=== PATIENT | female | born 1970 | race Caucasian/White ===

== ENCOUNTER → 2024-04-22 07:47 | Outpatient (REF) | payer BC, SELFPAY ==
[2024-04-22 09:00] LABS: % Basophils 0.5 % (0-2); % Eosinophils 1.4 % (0-6); % Immature Granulocytes 0.2 % (0-0.5); % Lymphocytes 31.4 % (20.5-51.1); % Monocytes 7.7 % (1.7-9.3); % Neutrophils 58.8 % (42.2-75.2); Absolute Eosinophils 0.1 10^3/uL (0-0.7); Absolute Lymphocytes 1.4 10^3/uL (1.2-3.4); Absolute Monocytes 0.3 10^3/uL (0.1-0.6); Absolute Neutrophils 2.6 10^3/uL (1.4-6.5); Hematocrit 37.5 % (37.0-47.0); Hemoglobin 13.3 g/dL (12.0-16.0); Mean Corp Hgb Conc. 35.5 g/dL (33.0-37.0); Mean Corpuscular Hgb 31.4 pg (27.0-31.0); Mean Corpuscular Volume 88.7 fL (81.0-99.0); Mean Platelet Volume 9.8 fL (7.4-10.4); Nucleated Red Blood Cells % 0 %; Platelet Count 275 10^3/uL (130-400); Red Blood Cell Count 4.23 10^6/uL (4.20-5.40); Red Cell Dist. Width 11.9 % (11.5-14.5); White Blood Cell Count 4.4 10^3/uL (4.8-10.8)
[2024-04-22 10:52] LABS: ALT (SGPT) 17 U/L (0-35); AST (SGOT) 26 U/L (14-36); Albumin 4.6 g/dl (3.5-5.0); Alkaline Phosphatase 64 U/L (38-126); Blood Urea Nitrogen 18 mg/dl (7-17); Carbon Dioxide 31 mmol/L (22-30); Chloride 100 mmol/L (98-107); Glucose 88 mg/dl (70-99); HDL Cholesterol 101 mg/dl; LDL Cholesterol, Calculated 92 mg/dl; Sodium 140 mmol/L (135-145); Total Bilirubin 0.9 mg/dl (0.2-1.3); Total Cholesterol 202 mg/dl (50-199); Total Protein 7.1 g/dl (6.3-8.2); Triglyceride 48 mg/dl (10-149); Very Low Density Lipoprotein 9 mg/dl (0-30); eGFR > 60.00
[2024-04-22 11:43] LABS: TSH 2.22 uIU/ml (0.47-4.68)
== END ==
LOC: REG 07:47
PROVIDERS: ATTENDING PHYSICIAN Nurse Practitioner
DX: R53.83 Other fatigue (principal); Z00.00 Encounter for general adult medical examination without abnormal findings; E78.5 Hyperlipidemia, unspecified
CPT/HCPCS: 36415; 80053; 80061; 84443; 85025

== ENCOUNTER → 2024-07-08 13:22 | Outpatient (REF) | payer BC, SELFPAY | LOC: RAD 13:22 | PROVIDERS: ATTENDING PHYSICIAN Hospitalist | DX: M79.89 Other specified soft tissue disorders (principal) | CPT/HCPCS: 93971 ==

== ENCOUNTER → 2024-08-04 17:27 | Outpatient (REF) | payer BC, SELFPAY | LOC: WDC 17:27 | PROVIDERS: ATTENDING PHYSICIAN Obstetrics & Gynecology; FAMILY PHYSICIAN Internal Medicine | DX: Z12.31 Encounter for screening mammogram for malignant neoplasm of breast (principal) | CPT/HCPCS: 77063; 77067 ==

== ENCOUNTER 2024-10-22 10:01 | Outpatient (RCR) | payer BC, SELFPAY | END 2024-10-22 23:59 | disposition home or self-care (01) | LOC: RPT 10:01 | PROVIDERS: ATTENDING PHYSICIAN Student in an Organized Health Care Education/Training Program; FAMILY PHYSICIAN Internal Medicine | DX: Z47.89 Encounter for other orthopedic aftercare (principal); M20.11 Hallux valgus (acquired), right foot; Z73.6 Limitation of activities due to disability; R26.2 Difficulty in walking, not elsewhere classified; R26.89 Other abnormalities of gait and mobility | CPT/HCPCS: 97110; 97140; 97161 ==

== ENCOUNTER → 2025-06-07 08:12 | Outpatient (REF) | payer BC, SELFPAY ==
[2025-06-07 09:19] LABS: Hematocrit 41.0 % (37.0-47.0); Hemoglobin 13.7 g/dL (12.0-16.0); Mean Corp Hgb Conc. 33.4 g/dL (33.0-37.0); Mean Corpuscular Volume 90.5 fL (81.0-99.0); Nucleated Red Blood Cells % 0 %; Platelet Count 283 10^3/uL (130-400); Red Cell Dist. Width 12.0 % (11.5-14.5)
[2025-06-07 10:14] LABS: ALT (SGPT) 18 U/L (0-35); AST (SGOT) 22 U/L (14-36); Albumin 4.9 g/dl (3.5-5.0); Alkaline Phosphatase 68 U/L (38-126); Blood Urea Nitrogen 16 mg/dl (7-17); Calcium 9.8 mg/dl (8.4-10.2); Carbon Dioxide 28 mmol/L (22-30); Chloride 103 mmol/L (98-107); Glucose 95 mg/dl (70-99); Potassium 4.8 mmol/L (3.5-5.1); Sodium 138 mmol/L (135-145); Total Protein 7.9 g/dl (6.3-8.2); Very Low Density Lipoprotein 23 mg/dl (0-30); eGFR > 60.00
[2025-06-07 10:24] LABS: HDL Cholesterol 113 mg/dl; LDL Cholesterol, Calculated 77 mg/dl
[2025-06-07 10:27] LABS: TSH 3.93 uIU/ml (0.47-4.68)
== END ==
LOC: REG 08:12
PROVIDERS: ATTENDING PHYSICIAN Nurse Practitioner
DX: R53.83 Other fatigue (principal); Z00.00 Encounter for general adult medical examination without abnormal findings; E78.5 Hyperlipidemia, unspecified; I83.93 Asymptomatic varicose veins of bilateral lower extremities; M53.3 Sacrococcygeal disorders, not elsewhere classified
CPT/HCPCS: 36415; 80053; 80061; 84443; 85025

== ENCOUNTER 2025-06-20 09:51 | Emergency (ER) | payer BC, SELFPAY ==
[2025-06-20 10:01] VITALS: BP 141/90
[2025-06-20 10:28] LABS: Hematocrit 37.8 % (37.0-47.0); Hemoglobin 13.2 g/dL (12.0-16.0); Mean Corp Hgb Conc. 34.9 g/dL (33.0-37.0); Mean Corpuscular Volume 89.4 fL (81.0-99.0); Nucleated Red Blood Cells % 0 %; Platelet Count 272 10^3/uL (130-400); Red Cell Dist. Width 12.1 % (11.5-14.5)
[2025-06-20 10:39] LABS: INR 0.92; PT 12.7 Sec (11.4-14.6)
[2025-06-20 10:42] LABS: ALT (SGPT) 15 U/L (0-35); AST (SGOT) 20 U/L (14-36); Albumin 4.8 g/dl (3.5-5.0); Alkaline Phosphatase 61 U/L (38-126); Blood Urea Nitrogen 17 mg/dl (7-17); Calcium 9.3 mg/dl (8.4-10.2); Carbon Dioxide 28 mmol/L (22-30); Chloride 105 mmol/L (98-107); Glucose 112 mg/dl (70-99); Potassium 4.5 mmol/L (3.5-5.1); Sodium 136 mmol/L (135-145); Total Protein 7.8 g/dl (6.3-8.2); eGFR > 60.00
[2025-06-20 10:54] LABS: Troponin I < 0.012 ng/ml
[2025-06-20 11:36] VITALS: BP 118/78
[2025-06-20 12:00] VITALS: BP 127/81
[2025-06-20 13:00] VITALS: BP 112/64
--- NOTE | 2025-06-20 13:21 | ED.GENMED ---
History of Present Illness
General
Chief Complaint: Chest Pain
Source: patient
Time Seen by Provider: 06/20/25 12:05
History of Present Illness
History of Present Illness:
55-year-old female with no significant past medical history presents to the emergency department for evaluation of left-sided chest wall pain that started mildly on Saturday, yesterday seem to intensify, today worse prompting her to come to the ER for
further evaluation. There are no associated symptoms although the patient does note the pain seems to be worse positionally and intermittently with a deeper inspiration. She denies any recent travel, known sick contacts, cough or URI-like
symptoms, hemoptysis, shortness of breath or exertional dyspnea. Patient does take hormone replacement therapy for menopause. Social history noncontributory as well as family history.
Past History
Past History
ED Past Medical History: None
ED Past Surgical History: None
Social History
Tobacco: Non-smoker
Alcohol: Occasional
Drug: None
Personal:
Living: with family
Review of Systems
Review of Systems
All Other Systems: ROS reviewed and negative except as documented in HPI and ROS
Phy Exam
Physical Exam
Physical Exam:
GENERAL: Alert , in no apparent distress
HEAD: Normocephalic atraumatic
EYE: conjunctiva clear
NECK: Supple
ENT: o/p clr, mmm.
CARDIAC: Regular rate and rhythm
LUNGS: Clear breath sounds bilaterally, no acute respiratory distress, no wheezes/rales/rhonchi, pain does seem to be reproducible with movement as well as slightly with palpation just superior to the left breast
NEUROLOGICAL: Alert and oriented
SKIN: Warm and dry, skin intact.
MUSCULOSKELETAL: well perfused.
PSYCH: Normal and appropriate interaction.
Scores
Heart Failure Risk
Heart Failure Risk Score: Not Applicable
Heart Score for Chest Pain Patients
STEMI patient?: No
History: Slightly or Non-Suspicious
ECG: Normal
Age: >45 - <65 years
Risk Factors: No Risk Factors
Troponin: </= Normal Limit
Heart Score for Chest Pain Patients: 1
Heart Score Risk: 2.5% MACE over next 6 weeks
Withdrawal Assessment of Alcohol
Withdrawal Assessment Completed?: Not applicable
Course
Orders/Labs/Results
Orders:
Orders
06/20/25 09:53
ECG [Electrocardiogram (*1)] Urgent
Reason for Study: Chest Pain
EKG- Treatment ONCE
06/20/25 10:04
CR Chest - 2 Views Urgent
Comment:
Reason For Exam: chest pain
06/20/25 10:19
Complete Blood Count/With Diff Urgent
Comprehensive Metabolic Panel Urgent
D-Dimer Urgent
Comment: ADD ON
Prothrombin Time Urgent
TSH Reflex To Free T4 Urgent
Comment: ADD ON
Troponin I Urgent
06/20/25 10:31
Add On- LAB Urgent
Tests Added?: tsh reflex t4
06/20/25 12:30
Add On- LAB Urgent
Tests Added?: d-dimer
06/20/25 13:20
Ibuprofen [Motrin] 800 mg PO NOW STA
Abnormal Lab Results
06/20/25
10:19
MCH 31.2 H pg
(27.0-31.0)
Absolute Neuts (auto) 6.9 H 10^3/uL
(1.4-6.5)
Neutrophils % 75.4 H %
(42.2-75.2)
Lymphocytes % 18.4 L %
(20.5-51.1)
Glucose 112 H mg/dl
(70-99)
06/20/25 10:19
06/20/25 10:19
Vital Signs
Initial and Last Documented VS:
Initial Vital Signs
Temp Pulse Resp BP Pulse Ox
98.1 F 75 17 141/90 99
06/20/25 10:01 06/20/25 10:01 06/20/25 10:01 06/20/25 10:01 06/20/25 10:01
Last Documented Vital Signs
Temp Pulse Resp BP Pulse Ox
98.1 F 76 15 112/64 97
06/20/25 10:01 06/20/25 14:45 06/20/25 14:45 06/20/25 13:00 06/20/25 14:45
MDM/Problems Addressed
Differential Diagnosis Includes:
Musculoskeletal chest wall
Pleurisy/costochondritis
Pneumothorax
ACS/NSTEMI
Pneumonia
GERD/gastritis
PE
MDM/Problems Addressed:
55-year-old female presenting to the ER for evaluation of left-sided chest wall pain, waxing and waning since Saturday, today more intense prompting her to come to the ER. Labs including troponin as well as a negative EKG performed from triage.
Given patient's use of estrogen replacement will obtain D-dimer. Chest x-ray had already been done and is negative for any acute processes. Disposition pending
*Radiology
Radiology exam reviewed: preliminary read by ED provider (Normal chest x-ray)
*Pulse Oximetry
SaO2: 100
Oxygen Mode of Delivery: Room air
Patient hypoxic: no
*EKG
Heart Rate: 66
Rate: normal
Rhythm: sinus
[place]: normal axis
Ischemia: no ischemia
*[employer]ic Interpretation
Rate: normal
Heart Rate: 68
Rhythm: sinus
*Critical Care Note
Total Time (30-74mins, 75-104mins- exclusive of procedures): Not Applicable
Patient Management
Escalation/DeEscalation of care consider admission/obs:
Patient's D-dimer negative. She notes feeling some relief with the Motrin provided. At this time she is stable for discharge home. Will follow-up with primary care provider.
ED Attending Note
-
Portions of this chart may have been created with voice recognition software.� Occasional wrong word or��sound alike� substitutions may have occurred due to the inherent limitations of voice recognition software.
Discharge Plan
Departure
Patient Disposition: Home (Routine Discharge)
Date of Disposition: 06/20/25
Time of Disposition: 14:51
Patient with high blood pressure during this ER visit?: No
Discharge Problem:
Chest pain
Instructions: Chest Pain That Is Not Caused by the Heart (DC)
Prescriptions:
No Action
Vitamins 1 TAB tablet
1 tab PO
hydrocodone-acetaminophen 1 TABLET tablet
1 tab PO Q4HPRN PRN (Reason: Pain) Qty: 8 0RF
ibuprofen 600 MG tablet
600 mg PO Q6 Qty: 20 0RF
Referrals:
Yareli Ansari MD [Family Provider, Internal Medicine]
Interventions
Interventions:
*Risk Screen - Suicide Last Done: 06/20/25 10:03
*General Assessment Last Done: 06/20/25 10:03
*Neglect/Abuse Screening Last Done: 06/20/25 10:03
*ED- Fall Risk Assessment Last Done: 06/20/25 11:56
*ED COVID-19 Vaccine History Last Done: 06/20/25 10:03
*ED Influenza Vaccine History Last Done: 06/20/25 10:03
*Nursing Disposition Last Done: 06/20/25 14:55
ED- Cardiac Assessment Last Done: 06/20/25 11:55
Discharge Date and Time
Discharge Date/Time: 06/20/25 14:55
Print Language: GERMAN
[2025-06-20] MEDS: MOTRIN 800 MG PO (13:35)
[2025-06-20 14:37] LABS: D-Dimer 0.32 ug/mlFEU (0.00-0.50)
== END 2025-06-20 14:55 | disposition home or self-care (01) ==
LOC: EMR 09:51
PROVIDERS: EMERGENCY PHYSICIAN Emergency Medicine; FAMILY PHYSICIAN Internal Medicine
DX: R07.89 Other chest pain (principal); Z79.890 Hormone replacement therapy
CPT/HCPCS: 99283; 71046; 80053; 84443; 84484; 85025; 85379; 85610; 93005